=== PATIENT | male | born 1950 | race Caucasian/White ===

== ENCOUNTER 2018-02-13 07:20 | Day surgery (SDC) | payer MEDICARE, OTHER ==
[~2018-02-13] VITALS: Ht 170.2 cm; Wt 102.5 kg
[2018-02-13] VITALS (9 sets, daily range): BP systolic 142–152; BP diastolic 70–90
[~2018-02-13 07:20] MED LIST: ALB0.5UD IH; AMLO10TA PO; ATOR20TA PO; BUDE0.5A11 IH; CARV-50 PO; CARV25TA PO; CHLO25TA2 PO; CHOL400T14 PO; ESZO2TAB31 PO; FLUC100T40 PO; FURO-149 PO; HYDR-3968 PO; HYDR50TA65 PO; INSU100V5 IJ; LEVA15HF4 INH; LISI10TA4 PO; MIRT15TA PO; MULT-1085 PO; NPH,100I SQ; POTA-82 PO; PREG200C PO; VENL150T3 PO; VITC500T PO; XAL0.005OS OP
[2018-02-13] MEDS ORDERED: diphenhydrAMINE 25mg capsule PO PRN (07:40)
[2018-02-13] MEDS ORDERED: sod bicarbonate 150mEq in D5W 1,150 ML IV ONE (07:40)
[2018-02-13] MEDS ORDERED: CYA500T PO (08:09)
[2018-02-13] MEDS ORDERED: LISI-600 PO (08:13)
[2018-02-13] MEDS ORDERED: MELO-100 PO (08:13)
[2018-02-13 08:34] LABS: BASOPHILS % (AUTO) 0.4 % (0-1); EOSINOPHILS # (AUTO) 0.2 X10'3 (0-0.9); HEMATOCRIT 39.6 % (42.0-52.0); HEMOGLOBIN 13.3 g/dl (14.0-17.9); LYMPHOCYTES # (AUTO) 1.7 X10'3 (1.1-4.8); LYMPHOCYTES % (AUTO) 23.8 % (21-51); MEAN CORPUSCULAR HGB CONC 33.7 % (33.0-36.5); MEAN CORPUSCULAR VOLUME 91.9 FL (78-98); MEAN PLATELET VOLUME 8.7 FL (7.4-10.4); MONOCYTES # (AUTO) 0.7 X10'3 (0-0.9); MONOCYTES % (AUTO) 9.8 % (2-12); NEUTROPHILS # (AUTO) 4.6 X10'3 (1.8-7.7); PLATELET COUNT 153 X10'3 (140-440); RED BLOOD COUNT 4.31 X10'6 (4.70-6.10); RED CELL DISTRIBUTION WIDTH 14.6 % (11.5-14.5); WHITE BLOOD COUNT 7.3 X10'3 (4.5-11.0)
[2018-02-13] MEDS ORDERED: PRAZ5CAP PO (08:36)
[2018-02-13 08:43] LABS: ALBUMIN 3.6 G/DL (3.4-5.0); ANION GAP 8 (8-16); BLOOD UREA NITROGEN 18 MG/DL (7-18); BUN/CREATININE RATIO 19.8 (5.4-32.0); CALCIUM 8.7 MG/DL (8.5-10.1); CHLORIDE 105 MMOL/L (99-107); CREATININE 0.91 MG/DL (0.60-1.10); GLUCOSE 135 MG/DL (70-104); MAGNESIUM 1.9 MG/DL (1.5-2.4); POTASSIUM 3.7 MMOL/L (3.5-5.1); SODIUM 142 MMOL/L (135-145); TOTAL CARBON DIOXIDE 29.5 MMOL/L (24-32); eGFR 83 ML/MIN
[2018-02-13] MEDS ORDERED: SAXA5TAB PO (08:48)
[2018-02-13] MEDS ORDERED: DORZ10DR18 EACHEYE (08:48)
[2018-02-13] MEDS ORDERED: RAME8TAB15 PO (08:48)
[2018-02-13] MEDS ORDERED: ASPI81TA52 PO (08:53)
[2018-02-13] MEDS ORDERED: LACT1CAP65 PO (08:55)
[2018-02-13] MEDS ORDERED: HYDR-4383 PO (08:55)
[2018-02-13 08:59] LABS: PROTHROMBIN TIME 10.6 SECONDS (9.0-12.0)
[2018-02-13] MEDS ORDERED: WARF6TAB49 PO (09:00)
[2018-02-13] MEDS ORDERED: LOPE2CAP PO (09:00)
[2018-02-13] MEDS ORDERED: fentaNYL/PF 50MCG/1 ML 2ML syringe ONE ×2 (09:03→09:46)
[2018-02-13] MEDS ORDERED: iohexol 350 MG/ML 50ML vial IV ONE (09:04)
[2018-02-13] MEDS ORDERED: midazolam 2 mg/2 ml injection ONE ×3 (09:04→09:49)
[2018-02-13] MEDS ORDERED: LIDOcaine 1% 30ml preserv. free vial ONE (09:04)
[2018-02-13] MEDS ORDERED: iohexol 350MG/ML 100ml bottle IV ONE (09:04)
[2018-02-13] MEDS ORDERED: proCHLORperazine 10 MG/2 ml inj ONE (09:35)
[2018-02-13] MEDS ORDERED: adenosine 90 MG/30ml kit =/or below 120kg Cath Lab IV ONE (10:01)
== END 2018-02-13 14:25 | disposition home or self-care (01) ==
LOC: SSTAY O 07:20
PROVIDERS: ATTEND Internal Medicine Cardiovascular Disease
DX: I48.91 Unspecified atrial fibrillation (principal); I25.10 Atherosclerotic heart disease of native coronary artery without angina pectoris; I10 Essential (primary) hypertension; E11.9 Type 2 diabetes mellitus without complications; E78.00 Pure hypercholesterolemia, unspecified; Z87.891 Personal history of nicotine dependence; Z96.651 Presence of right artificial knee joint; Z88.8 Allergy status to other drugs, medicaments and biological substances; Z95.5 Presence of coronary angioplasty implant and graft; Z98.890 Other specified postprocedural states
CPT/HCPCS: 36415; 80048; 83735; 85025; 85610; 92960; 93005; 93458; 93571; A6257; C1760; C1769; C1894; J0153; J0780; J1644; J2250; J3010; J3490; Q0163; Q9967; 99152; 99153; A4620

== ENCOUNTER 2018-04-10 08:24 | Day surgery (SDC) | payer MEDICARE, OTHER ==
[~2018-04-10] VITALS: Ht 167.6 cm; Wt 103.3 kg
[2018-04-10] VITALS (17 sets, daily range): BP systolic 104–124; BP diastolic 53–84
[~2018-04-10 08:24] MED LIST changes: +ASPI81TA52 PO; -CARV-50 PO; +CYA500T PO; +DORZ10DR18 EACHEYE; -ESZO2TAB31 PO; -FLUC100T40 PO; -HYDR-3968 PO; +HYDR-4383 PO; +LACT1CAP65 PO; -LEVA15HF4 INH; +LISI-600 PO; -LISI10TA4 PO; +LOPE2CAP PO; +MELO-100 PO; +PRAZ5CAP PO; +RAME8TAB15 PO; +SAXA5TAB PO; +WARF6TAB49 PO
[2018-04-10] MEDS ORDERED: fentaNYL/PF 50MCG/1 ML 2ML syringe IV ONE (09:10)
[2018-04-10] MEDS ORDERED: MIDAZolam 5mg/ml 2ml vial IV ONE (09:10)
[2018-04-10] MEDS ORDERED: normal saline 1000ml 1,000 ML IV SCH (09:10)
[2018-04-10 09:56] LABS: BASOPHILS % (AUTO) 0.4 % (0-1); EOSINOPHILS # (AUTO) 0.2 X10'3 (0-0.9); EOSINOPHILS % (AUTO) 2.9 % (0-6); HEMATOCRIT 29.7 % (42.0-52.0); HEMOGLOBIN 9.8 g/dl (14.0-17.9); LYMPHOCYTES # (AUTO) 1.1 X10'3 (1.1-4.8); LYMPHOCYTES % (AUTO) 15.3 % (21-51); MEAN CORPUSCULAR HEMOGLOBIN 29.4 PG (27.0-31.0); MEAN CORPUSCULAR HGB CONC 32.9 % (33.0-36.5); MEAN CORPUSCULAR VOLUME 89.5 FL (78-98); MEAN PLATELET VOLUME 9.4 FL (7.4-10.4); MONOCYTES # (AUTO) 0.7 X10'3 (0-0.9); MONOCYTES % (AUTO) 8.8 % (2-12); NEUTROPHILS # (AUTO) 5.4 X10'3 (1.8-7.7); NEUTROPHILS % (AUTO) 72.6 % (42-75); PLATELET COUNT 206 X10'3 (140-440); RED BLOOD COUNT 3.32 X10'6 (4.70-6.10); RED CELL DISTRIBUTION WIDTH 15.4 % (11.5-14.5); WHITE BLOOD COUNT 7.4 X10'3 (4.5-11.0)
[2018-04-10 10:06] LABS: ALBUMIN 3.3 G/DL (3.4-5.0); ANION GAP 8 (8-16); BLOOD UREA NITROGEN 26 MG/DL (7-18); BUN/CREATININE RATIO 23.9 (5.4-32.0); CHLORIDE 104 MMOL/L (99-107); CREATININE 1.09 MG/DL (0.60-1.10); GLUCOSE 144 MG/DL (70-104); MAGNESIUM 1.9 MG/DL (1.5-2.4); POTASSIUM 3.4 MMOL/L (3.5-5.1); SODIUM 143 MMOL/L (135-145); TOTAL CARBON DIOXIDE 30.9 MMOL/L (24-32); eGFR 67 ML/MIN
[2018-04-10 10:18] LABS: INR 3.3 INR; PROTHROMBIN TIME 31.6 SECONDS (9.0-12.0)
[2018-04-10] MEDS ORDERED: amiodarone 150mg/dext, iso-os 100 ML IV ONE ×2 (10:50→11:20)
== END 2018-04-10 13:46 | disposition home or self-care (01) ==
LOC: SSTAY O 08:24
PROVIDERS: ATTEND Internal Medicine Cardiovascular Disease
DX: I48.91 Unspecified atrial fibrillation (principal); E11.9 Type 2 diabetes mellitus without complications; E78.5 Hyperlipidemia, unspecified; I42.0 Dilated cardiomyopathy; I25.10 Atherosclerotic heart disease of native coronary artery without angina pectoris; I11.0 Hypertensive heart disease with heart failure; I50.9 Heart failure, unspecified; G47.33 Obstructive sleep apnea (adult) (pediatric); J44.9 Chronic obstructive pulmonary disease, unspecified; Z95.5 Presence of coronary angioplasty implant and graft; Z79.82 Long term (current) use of aspirin; Z87.891 Personal history of nicotine dependence; Z96.653 Presence of artificial knee joint, bilateral; Z79.891 Long term (current) use of opiate analgesic; Z79.4 Long term (current) use of insulin; Z79.01 Long term (current) use of anticoagulants; Z79.899 Other long term (current) drug therapy; Z98.890 Other specified postprocedural states; Z88.8 Allergy status to other drugs, medicaments and biological substances; Z80.9 Family history of malignant neoplasm, unspecified
CPT/HCPCS: 36415; 80048; 82948; 83735; 85025; 85610; 92960; 93005; J0282; J2250; J3010; J7030

== ENCOUNTER 2018-05-08 18:14 | Emergency (ER) | payer MEDICARE, OTHER ==
[~2018-05-08] VITALS: Ht 170.2 cm; Wt 97.3 kg
[~2018-05-08 18:14] MED LIST changes: -LOPE2CAP PO
--- NOTE | 2018-05-08 19:26 | NUR ---
RECONCILIATION ANALYST AT BEDSIDE
[2018-05-08 19:28] LABS: BASOPHILS # (AUTO) 0.1 X10'3 (0-0.2); BASOPHILS % (AUTO) 0.8 % (0-1); EOSINOPHILS # (AUTO) 0.3 X10'3 (0-0.9); EOSINOPHILS % (AUTO) 3.4 % (0-6); HEMATOCRIT 33.7 % (42.0-52.0); HEMOGLOBIN 11.3 g/dl (14.0-17.9); LYMPHOCYTES # (AUTO) 1.3 X10'3 (1.1-4.8); LYMPHOCYTES % (AUTO) 17.2 % (21-51); MEAN CORPUSCULAR HEMOGLOBIN 28.7 PG (27.0-31.0); MEAN CORPUSCULAR HGB CONC 33.4 % (33.0-36.5); MEAN CORPUSCULAR VOLUME 86.1 FL (78-98); MEAN PLATELET VOLUME 9.5 FL (7.4-10.4); MONOCYTES # (AUTO) 0.6 X10'3 (0-0.9); MONOCYTES % (AUTO) 8.2 % (2-12); NEUTROPHILS # (AUTO) 5.3 X10'3 (1.8-7.7); NEUTROPHILS % (AUTO) 70.4 % (42-75); PLATELET COUNT 202 X10'3 (140-440); RED BLOOD COUNT 3.92 X10'6 (4.70-6.10); RED CELL DISTRIBUTION WIDTH 15.8 % (11.5-14.5); WHITE BLOOD COUNT 7.6 X10'3 (4.5-11.0)
[2018-05-08] MEDS ORDERED: BACDS PO (19:48)
[2018-05-08] MEDS ORDERED: CEPH500C5 PO (19:48)
[2018-05-08] MEDS ORDERED: sulfamethoxazole/trimethoprim DS (800/160mg) tablet PO ONE (19:55)
[2018-05-08] MEDS ORDERED: cephalexin 250mg capsule PO ONE (19:55)
[2018-05-08 20:02] VITALS: BP 146/83
== END 2018-05-08 20:03 | disposition home or self-care (01) ==
LOC: ER 18:15
DX: T84.84XA Pain due to internal orthopedic prosthetic devices, implants and grafts, initial encounter (principal); R22.42 Localized swelling, mass and lump, left lower limb; Z98.890 Other specified postprocedural states; Z79.4 Long term (current) use of insulin; Z79.01 Long term (current) use of anticoagulants; Z79.899 Other long term (current) drug therapy; Z95.0 Presence of cardiac pacemaker
CPT/HCPCS: 36415; 84145; 85025; 93971; 99284